=== PATIENT | male | born 1950 | race Caucasian/White ===

== ENCOUNTER → 2018-07-07 | Day surgery (SDC) | payer BC ==
[2018-07-05 15:36] LABS: BASOPHILS % 0.4 % (0.0-1.0); EOSINOPHILS # (AUTO) 0.2 (0.0-0.4); EOSINOPHILS % 2.1 % (0.0-6.0); HEMOGLOBIN 14.4 g/dL (14.0-18.0); LYMPHOCYTES # (AUTO) 1.9 (1.0-3.2); LYMPHOCYTES % 24.1 % (18.0-39.1); MEAN CORPUSCULAR HEMOGLOBIN 26.8 pg (28-32); MEAN CORPUSCULAR HGB CONC 31.3 g/dL (31-35); MEAN CORPUSCULAR VOLUME 85.5 fL (81-99); MONOCYTES # (AUTO) 0.8 (0.2-0.8); MONOCYTES % 10.1 % (4.4-11.3); NEUTROPHILS % 62.8 % (38.7-80.0); PLATELET COUNT 214 x10e3/uL (140-360); RED BLOOD COUNT 5.38 x10e6/uL (4.3-5.7); RED CELL DISTRIBUTION WIDTH 13.2 % (11.7-14.4)
[~2018-07-07] MED LIST: DOXYCYCLINE HY100 MG PO; EPHEDRINE SULFATE INJ 50 MG/10 ML SYR ONE; FENOFIBRATE PO; FENTANYL CITRATE/PF 100MCG/2 ML INJ ONE; GLUCAGON FOR INJ 1 MG VIAL ONE; LISINOPRIL10 MG PO; LOVASTATIN40 MG PO; METFORMIN HCL500 MG PO; MIDAZOLAM HCL 2 MG/2 ML VIAL ONE; PHENYLEPHRINE HCL 1% 10 MG/ML VIAL ONE; PROPOFOL IV EMULSION 10 MG/ML 50 ML VIAL ONE
--- OUTSIDE RECORDS SUMMARY | 2018-07-07 07:47 | XMS REPORT | Clinical Summary ---
Author Author MAURI [facility], [facility] Address Unknown Phone Unavailable Care Team Providers Care Extension Forester Name Role Phone Dewey Soliman PCP Unavailable Allergies No Known Allergies Medications Not on file Active Problems Not on file Encounters Care Team Description Date Type Specialty Jona Kim MD Nonintractable epilepsy without status epilepticus, unspecified epilepsy type (HCC) 09/08/2017 Hospital Encounter Jona Kim MD Nonintractable epilepsy without status epilepticus, unspecified epilepsy type (HCC) (Primary Dx) 09/02/2017 Outside Orders Central Scheduling after 07/06/2017 Social History Date Tobacco Use Types Packs/Day Years Used Never Assessed Sex Assigned at Date Recorded Not on file Industry Job Start Date Occupation Not on file Not on file Not on file Travel End Travel History Travel Start No recent travel history available. Last Filed Vital Signs Not on file Plan of Treatment Not on file Procedures Comments Procedure Name Priority Date/Time Associated Diagnosis EEG AWAKE AND DROWSY Routine 09/08/2017 Nonintractable epilepsy 10:33 AM CDT without status epilepticus, unspecified epilepsy type (HCC) after 07/06/2017 Results * EEG Awake & Drowsy (09/08/2017 10:33 AM CDT) Narrative Performed At Date(s) of EE09/08/2017 [facility] DATE OF REPORT: 09/08/2017 ACC: [id number] EEG Number: [id number] Test Location: Outpatient Start time: 09:54 Stop time: 10:24 ICD-10: R56.9 CPT Code: 98089 HISTORY: 67 y/o man with history of epilepsy without recent seizures who stopped anti-seizure medications last month MEDICATIONS THAT COULD AFFECT EEG: TECHNICAL SUMMARY: This is a digital video-EEG recorded with 32 input channels reviewed with bipolar and referential montages using the modified combinatorial system nomenclature. DESCRIPTION OF RECORD: During the maximally alert state a 9.5-10.5 Hz posterior dominant rhythm was seen that was symmetric, reactive to eye opening and well regulated.More anteriorly, low voltage frontocentral beta predominated.Drowsiness was characterized by alpha attenuation and increased frontocentral theta, vertex sharp transients and POSTS. Stage 2 sleep was reached characterized by symmetric sleep spindles and K-complexes. SIGNIFICANT VIDEO EVENTS: None SIGNIFICANT ELECTROCARDIOGRAM EVENTS: None HV: Hyperventilation was performed for 3 minutes with good effort. No change was seen with HV. PHOTIC STIMULATION: Photic stimulation was done from 3-18 Hz; no photic driving was seen; photoparoxysmal responses were absent. IMPRESSION: Normal Awake and Sleep EEG CLINICAL CORRELATION: An EEG without epileptiform discharges does not exclude the possibility of epilepsy.If the clinical suspicion of epilepsy remains, consider additional EEG recordings. Lawanda Martins MD Neurophysiology Fellow I have reviewed the electroencephalogram and this report and agree with its interpretation. Marshall Pierce MD Attending Neurophysiologist [facility] Procedure Note Interface, External Ris In - 09/08/2017 5:53 PM CDT Date(s) of EE09/08/2017 DATE OF REPORT: 09/08/2017 ACC: [id number] EEG Number: [id number] Test Location: Outpatient Start time: 09:54 Stop time: 10:24 ICD-10: R56.9 CPT Code: 98700 HISTORY: 67 y/o man with history of epilepsy without recent seizures who stopped anti-seizure medications last month MEDICATIONS THAT COULD AFFECT EEG: TECHNICAL SUMMARY: This is a digital video-EEG recorded with 32 input channels reviewed with bipolar and referential montages using the modified combinatorial system nomenclature. DESCRIPTION OF RECORD: During the maximally alert state a 9.5-10.5 Hz posterior dominant rhythm was seen that was symmetric, reactive to eye opening and well regulated. More anteriorly, low voltage frontocentral beta predominated. Drowsiness was characterized by alpha attenuation and increased frontocentral theta, vertex sharp transients and POSTS. Stage 2 sleep was reached characterized by symmetric sleep spindles and K-complexes. SIGNIFICANT VIDEO EVENTS: None SIGNIFICANT ELECTROCARDIOGRAM EVENTS: None HV: Hyperventilation was performed for 3 minutes with good effort. No change was seen with HV. PHOTIC STIMULATION: Photic stimulation was done from 3-18 Hz; no photic driving was seen; photoparoxysmal responses were absent. IMPRESSION: Normal Awake and Sleep EEG CLINICAL CORRELATION: An EEG without epileptiform discharges does not exclude the possibility of epilepsy. If the clinical suspicion of epilepsy remains, consider additional EEG recordings. Lawanda Martins MD Neurophysiology Fellow I have reviewed the electroencephalogram and this report and agree with its interpretation. Marshall Pierce MD Attending Neurophysiologist [facility] Performing Organization Address City/State/Zipcode Phone Number GE RIS after 07/06/2017 Insurance Payer Benefit Subscriber ID Type Phone Address Plan / Group BLUE CROSS/BLUE SHIELD BCBS PPO xxxxxxxxxxxx PPO [phone] [address] [place] [address] CHOICE
--- OUTSIDE RECORDS SUMMARY | 2018-07-07 07:47 | XMS REPORT ---
Author Author [facility] Address Unknown Phone Unavailable Care Team Providers Care Derrick Builder Name Role Phone MACY MAYA Unavailable Unavailable Margarita AQUINO Unavailable Unavailable Problems This patient has no known problems. Allergies, Adverse Reactions, Alerts This patient has no known allergies or adverse reactions. Medications This patient has no known medications. Results Test Description Test Time Test Comments Text Results Atomic Results Result Comments EEG AWAKE AND DROWSY 2017-09-08 17:53:00 Reason for exam:->Epilepsy, unspecified, not intractable, without status epilepticus [G40.909] Date(s) of EE09/08/2017 DATE OF REPORT: 09/08/2017 ACC: [id number] EEG Number: [id number] Test Location: Outpatient Start time: 09:54 Stop time: 10:24 ICD-10: R56.9 CPT Code: 67432 HISTORY: 67 y/o man with history of [...] its interpretation. Marshall Pierce MD Attending Neurophysiologist [facility] AWAKE AND DROWSY 2017-06-29 13:59:00 Reason for exam:->Generalized idiopathic epilepsy and epileptic syndromes, not intractable, without status epilepticus [G40.309] DATE OF TEST: 06/29/17 DATE OF REPORT: 06/29/17 ACC: [id number] EE-408 Start time: 10:53am Stop time: 11:24am ICD-10: R56.9 CPT Code: 44669 HISTORY: 67 yo M w/ suspected seizure like events in November and December (BENITA ESCOBEDO). Has normal MRI. MEDICATIONS: Levetiracetam TECHNICAL SUMMARY: This is a digital video EEG recorded with 32 input channels reviewed with bipolar and referential montages using the modified combinatorial system nomenclature. DESCRIPTION OF RECORD: During the maximally alert state a 9 - 10 Hz posterior dominant rhythm was seen that was symmetric, reactive to eye opening and well regulated. More anteriorly, low voltage frontocentral beta predominated. Drowsiness was characterized by alpha attenuation and increased frontocentral theta, vertex sharp transients and POSTS. Stage 2 sleep was reached characterized by symmetric sleep spindles and K-complexes. HV: Hyperventilation was performed for 3 minutes with good effort. No change was seen with HV. PHOTIC STIMULATION: Flash stimulation was done from 3-18 Hz; no photic driving was seen; photoparoxysmal responses were absent. IMPRESSION: Normal awake and asleep EEG CLINICAL CORRELATION: An EEG without epileptiform discharges does not exclude the possibility of epilepsy. If the clinical suspicion of epilepsy remains, consider additional EEG recordings. Sandie Dixon MD Neurophysiology Fellow Rik Tolbert [facility] Epilepsy/Neurophysiology Attending , BRAIN, WITH 2017-06-29 09:29:00 FINAL REPORT MRI Brain with and without contrast seizure protocol 06/29/2017 at 0908. CLINICAL HISTORY: Generalized idiopathic epilepsy. COMPARISON: None available. TECHNIQUE: Multiplanar MR imaging of the brain was provided [id number] IV gadolinium administration using T1, T2, FLAIR, FFE, DWI, and ADC map imaging. Dedicated coronal T1, T2, and FLAIR imaging sequences were performed as well. FINDINGS: There is no acute infarct, remarkable white matter disease, hematoma, mass, extra-axial collection, or hydrocephalus. There is no schizencephaly, callosal dysgenesis, mesial temporal sclerosis, heterotopia, or evident cortical dysplasia. There is generalized parenchymal volume loss. Normal appearing flow- voids are present within the major intracranial vascular structures. There is a tiny developmental venous anomaly in the superior left cerebellum. The sellar and pineal regions are normal. The craniovertebral junction is intact. The visualized orbits, face, and skull base are without worrisome finding. IMPRESSION: Unremarkable contrast-enhanced examination. Signed: Ascencion Heard Verified Date/Time: 06/29/2017 09:29:46 Reading Location: [address] Neuro Reading Room -CREATININE 2017-06-29 08:22:00 POC-CREATININE (SYLVIA) (test ionb=1318) 1.4 mg/dL 0.6-1.3 [address]ED [address] [address] POC-EGFR (SYLVIA) (test ueof=2466) 51 mL/min/1.73M2 CT BRAIN [place] [address] Patient Name: TRESSA INFANTE MR #: [id number] : 1950 Age/Sex: 66/M Req #: [id number] Adm Physician: Ordered by: FREIDA AQUINO MD Report #: [id number] Location: Room/Bed: Procedure: [id number] CT/CT BRAIN WO Exam Date: Exam Time: 1609 REPORT STATUS: Signed EXA MINATION: Head CT HISTORY: Left-sided upper and lower extremity numbness/w eakness COMPARISON: None. TECHNIQUE: Multidetector axial images were obtaine d without contrast from the foramen magnum to the vertex . The images were rec onstructed using brain and bone algorithms. Thin section brain images were re formatted into coronal and sagittal planes. Intravenous contrast: None. M otion/streaking artifact limits the evaluation of the skull base and posterior cranial fossa. FINDINGS: Parenchyma: 1. No abnormal densitie s. 2. No mass or hemorrhage. No CT evidence of acute territorial vascular ins ult. Extra-axial spaces:No abnormal density. No extra-axial flu id collections Brain volume: Slightly disproportionate prominence of the cerebellar folia, likely related to volume loss. Ventricles: No hydro cephalus or displacement. Arteries: No density suggestive of thrombus. Dural sinuses: No abnormal density. Extra-axial spaces: No abnor mal density. Foramen magnum: No mass, Chiari malformation, or basilar in vagination. Sella: No obvious mass. Paranasal/mastoid sinuses: Imaged portions unremarkable. Skull/Scalp: No lytic or blastic lesions. No fractures. IMPRESSION: 1. No acute intracranial abnormalities, p articularly no hemorrhage or CT evidence of acute territorial cortical vascula r insult. 2. Mild cerebellar volume loss. Signed by: Dr. Mariana Cuadra M.D. on 01/05/2017 4:30 PM Dictated By: MARIANA CUADRA MD Electronically Si gned By: MARIANA CUADRA MD on 01/05/17 1630 Transcribed By: SHAYLA on 01/05/17 16 30 COPY TO: FREIDA AQUINO MD
[2018-07-07 12:40] VITALS: BP 114/72
--- NOTE | 2018-07-07 13:35 | Operative Report ---
DATE OF PROCEDURE: 07/07/2018 SURGEON: Dominick Lima MD PROCEDURES: Esophagogastroduodenoscopy with biopsies and colonoscopy with polypectomy. INDICATIONS FOR EGD: Dyspepsia. INDICATIONS FOR COLONOSCOPY: Surveillance colonoscopy, personal history of colon polyps. MEDICATIONS: The patient was done under MAC, please see anesthesiologist's note. PROCEDURE IN DETAIL: With the patient in left lateral decubitus position, flexible fiberoptic Olympus gastroscope was introduced into the esophagus under direct visualization without any difficulty. There was a single erosion noted in distal esophagus. The GE junction appeared somewhat nodular and that was biopsied. The scope was then advanced with ease into the stomach and mucosa overlying the antrum and the body revealed some patchy erythema, low grade to moderate edema and biopsies were obtained and sent to stain for H pylori. The pylorus was of normal contour and shape, was intubated with ease and the scope was advanced all the way to the second portion of the duodenum. The scope was then withdrawn slowly and biopsies were obtained from the proximal second portion and duodenal bulb to rule out sprue. The scope was then withdrawn back into the stomach and retroflexed and mucosa overlying the fundus and cardia appeared to be within normal limits. The scope was then straightened out, it was subsequently withdrawn. The patient tolerated the procedure well. IMPRESSION: 1. Distal erosive esophagitis. 2. Nodular gastroesophageal junction, biopsied. 3. Gastritis, biopsied. Biopsies sent to stain for Helicobacter pylori. 4. Rule out sprue. PLAN: Follow up histology. Initiate Protonix 40 mg one p.o. q.a.m. a.c. PROCEDURE IN DETAIL: The patient was then turned around. After adequate lubrication of the anal canal, flexible fiberoptic Olympus colonoscope was inserted into the rectum with ease and advanced all the way to the cecum. The scope was then withdrawn slowly and mucosa overlying the cecum and ascending colon appeared to be within normal limits. Diverticular disease was noted to be scattered throughout. One polyp was hot biopsied from the transverse colon, one polyp was hot biopsied from the descending colon as well as one polyp was hot biopsied from the sigmoid colon. The rectum grossly appeared to be within normal limits. The scope was then retroflexed into the distal rectum, small internal hemorrhoids were noted, none of which was actively bleeding. The scope was then straightened out, it was subsequently withdrawn. The patient tolerated the procedure well. IMPRESSION: 1. Diverticulosis. 2. Transverse colon polyp, hot biopsied. 3. Descending colon polyp, hot biopsied. 4. Sigmoid colon polyp, hot biopsied. 5. Internal hemorrhoids, none actively bleeding. PLAN: Follow up histology. Initiate high-fiber, low-fat diet. Initiate high-fiber supplement. Start VSL#3 one p.o. daily. The patient might benefit from a followup colonoscopy in 3 to 5 years. Dominick Lima MD [facility] [place] [place] /[id number] cc: Dewey Soliman MD
== END | disposition home or self-care (01) ==
LOC: OR 07:42
PROVIDERS: ATTEND Internal Medicine Gastroenterology
DX: K29.70 Gastritis, unspecified, without bleeding (principal); K63.5 Polyp of colon; K22.10 Ulcer of esophagus without bleeding; K22.8 Other specified diseases of esophagus; K57.30 Diverticulosis of large intestine without perforation or abscess without bleeding; K21.9 Gastro-esophageal reflux disease without esophagitis; K64.8 Other hemorrhoids; Q40.8 Other specified congenital malformations of upper alimentary tract; I10 Essential (primary) hypertension; E78.00 Pure hypercholesterolemia, unspecified; E11.9 Type 2 diabetes mellitus without complications; R56.9 Unspecified convulsions; H91.90 Unspecified hearing loss, unspecified ear; T78.40XA Allergy, unspecified, initial encounter; R05 Cough; F41.9 Anxiety disorder, unspecified; X58.XXXA Exposure to other specified factors, initial encounter; Z01.810 Encounter for preprocedural cardiovascular examination; Z01.812 Encounter for preprocedural laboratory examination; Z79.84 Long term (current) use of oral hypoglycemic drugs; Z79.82 Long term (current) use of aspirin; Z68.32 Body mass index [BMI] 32.0-32.9, adult; Z80.0 Family history of malignant neoplasm of digestive organs
CPT/HCPCS: 36415 ×2; 43239; 45384; 82948; 85025; 93005; J1610; J2250; J2370; J2704; 45378